=== PATIENT | female | born 1955 | race Caucasian/White ===

== ENCOUNTER 2019-02-16 12:01 | Day surgery (SDC) | payer OTHER, SELFPAY ==
--- NOTE | 2019-02-16 07:04 | COLE_ITS ---
Date of service: 02/16/19 Time of Service: 14:57 Colonoscopy Report Date of procedure: 02/16/19 Pre-op diagnosis general: Colon Cancer Screening Post-op diagnosis procedure note: other (Colorectal polyps) Procedure: Colonoscopy with polypectomy by cold forceps Surgeon: Alessandra Lindsay Anesthesia proc note operative: other (General/ ASA 2/ Jai Sullivan CRNA) Estimated blood loss (mL): 3 Pathology: other (Ascending polypX2, Sigmoid polyp x2) Complications: None Disposition: same day Indications: Mrs. Cabezas is a pleasant 63 year old female who was seen in the office for a screening colonoscopy. Her last colonoscopy was in 2005 and was normal. Risks, benefits and complications have been reviewed. Complications include but are not limited to bleeding, pain, perforation, missed small lesion/polyp, sore throat, aspiration and adverse reaction to the medications. Questions were entertained and answered to their satisfaction and they wished to proceed. No guarantees were given or implied. Prep: Miralax/Dulcolax Procedure Start Time: 14:57 Procedure End Time: 15:30 Retraction Time: 23 minutes Findings: 4 sessile polyps removed with cold forceps Procedure Description: After informed consent was obtained the patient was taken to the procedure room and placed in a left decubitous position. Monitors were applied and a time out was done. The patients name, date of , procedure, allergies to medications and metal in their body was reviewed. The patient was then sedated. Once sedated and comfortable a rectal exam was done. External exam was normal. Internal exam revealed a normal sphincter tone and no palpable m asses. The scope was then introduced and retro-flexed. No internal hemorrhoids were identified. There were no rectal polyps or masses noted. The scope was then advanced to the cecum without difficulty. The TI and appendiceal orifice were identified. The prep was adequate. There were numerous grapes noted. The scope was then slowly retracted over 23 minutes back into the rectum. Polyps were removed with cold forceps in the ascending colon and sigmoid colon. The scope was removed and the patient was woken up and taken back to Same day surgery in stable condition. The patient tolerated the procedure well and there were no immediate complications. Follow up: The patient should follow up in 3-5 years unless they develop changes in bowel habits or other new gastrointestinal complaints.
--- NOTE | 2019-02-16 07:04 | W.PM.DSUDISC ---
Discharge Plan Disposition Patient Disposition: HOME Condition: Good Discharge Details Reason For Visit: Colonoscopy Attending Provider: Alessandra Lindsay Primary Care Provider: Wilfredo Vizcaino Home Meds and New Rx's Prescriptions: Continued senna leaf tea PO HS PRN RF: 0 meclizine 25 mg tablet,chewable 25 mg PO DAILY PRNRF: 0 triamcinolone acetonide 0.1 % cream 1 applic TP TID Qty: 15 RF: 3 ibuprofen-diphenhydramine HCl [Advil PM Liqui-Gels] 200-25 mg capsule 1 cap PO QHS PRNRF: 0 omeprazole 20 mg capsule,delayed release(DR/EC) 20 mg PO DAILY RF: 0 Discontinued polyethylene glycol 3350 17 gram/dose powder 238 g PO ONCE Qty: 238 RF: 0 bisacodyl [Dulcolax (bisacodyl)] 5 mg tablet,delayed release (DR/EC) 5 mg PO ONCE Qty: 4 RF: 0 Discharge Instructions Instructions: Colonoscopy (DC), Colorectal Polyps (DC) Additional Instructions: Findings: 4 polyps Follow up: 3-5 years Please call if you develop: fevers >101.5 Nausea or Vomiting Abdominal pain that is not transient DAY SURGERY UNIT POST COLONOSCOPY INSTRUCTIONS 1. Because there will be medication in your system for the next 24 hours, you may feel a little sleepy. Your coordination will be affected. Therefore: a. Do not drive or operate dangerous equipment for 24 hours. b. Do not drink alcohol beverages for 24 hours (not even beer). c. Plan to go home and rest for the day. 2. Generally there are no restrictions on your activity after a day or so has gone by, but you may feel a bit fatigued for a few days. 3 After you arrive home you may have a light meal and return to a normal diet as you can tolerate it without feeling sick to your stomach. 4. After surgery, you may feel pain or discomfort. This should be only transient, but if it persists please contact your doctor. 5. If there are any questions regarding the findings of your procedure, please feel free to contact your doctor. 6. If you are unable to contact your doctor with a problem, contact the hospital at [phone]. 7. Continue all your regular medications unless directed otherwise. I understand the above instructions and have no questions. Signature of Patient or Responsible Adult Escort Date/Time Name of Responsible Adult Escort Signature of Nurse Date/Time Activity:: Activity as Tolerated Diet:: As Tolerated Discharge Orders Discharge Orders: Discharge Order (Routine); Ordered 02/16/19 Ordered By: Alessandra Lindsay DS: Diagnosis Discharge Diagnosis (1) S/P colonoscopy: Status: Acute (2) Colorectal polyps: Status: Acute
[2019-02-16 12:31] VITALS: BP 140/89; PULSE 72; RESP 16; TEMP 36.3; O2SAT 98
[2019-02-16] MEDS: Lactated Ringers 1,000 ML 80 ML IV (12:45)
--- NOTE | 2019-02-16 15:11 | BOWEL_PTH ---
PATIENT: Leslie Cabezas LOC: [facility] U#:[id number] AGE/SX: 63/F ROOM: RE02/16/[address]: Alessandra Lindsay MD : [id number] BED: DIS: 02/16/2019 SPEC #: [id number] RECD: 02/16/19 18:37 STATUS: BLAINE REQ #: [id number] ED: 02/16/19 15:[address]: Alessandra Lindsay DEPT: Surgical Specimen RECD BY: Latosha Augustin ENTERED: 02/16/19 18:39 SP TYPE: Bowel OTHR DR: Wilfredo Vizcaino Tissues: 1 - BIOPSY BOWEL 2 - BIOPSY BOWEL Procedures: GROSS AND MICRO LEVEL 4 Comments: [id number]
[2019-02-16 15:59] VITALS: BP 124/79; PULSE 55; RESP 16; TEMP 35.6; O2SAT 100
== END 2019-02-16 16:25 | disposition home or self-care (01) ==
LOC: SUR 12:01
PROVIDERS: PCP Internal Medicine; Visit Provider Surgery
PROC: 0DJD8ZZ Inspection of Lower Intestinal Tract, Via Natural or Artificial Opening Endoscopic (ICD-10-PCS; CPT 45378; principal; 2019-02-16 13:30)
DX: Z12.11 Encounter for screening for malignant neoplasm of colon (principal); D12.2 Benign neoplasm of ascending colon; K63.5 Polyp of colon
CPT/HCPCS: 45380; 88305

== ENCOUNTER 2019-05-27 10:07 | Outpatient (REF) | payer OTHER, SELFPAY ==
[2019-05-27 21:02] LABS: Calculated LDL 218 mg/dL; Cholesterol 314 mg/dL (50-200); HDL Cholesterol 70 mg/dL (40-60); Triglyceride 131 mg/dL (30-150)
[2019-05-29 09:44] LABS: Hepatitis C Ab w Rflx HCV PCR Negative (NEGAT)
== END 2019-05-27 10:27 ==
LOC: NCHCN 10:07
PROVIDERS: PCP Internal Medicine; Visit Provider Nurse Practitioner Family
DX: Z13.220 Encounter for screening for lipoid disorders (principal); Z11.59 Encounter for screening for other viral diseases
CPT/HCPCS: 80061; 86803

== ENCOUNTER 2019-06-03 09:57 | Outpatient (REF) | payer OTHER, SELFPAY ==
[2019-06-03 20:51] LABS: ALT 33 U/L (14-59); AST 19 U/L (15-37)
== END 2019-06-03 10:17 ==
LOC: NCHCN 09:57
PROVIDERS: PCP Internal Medicine; Visit Provider Nurse Practitioner Family
DX: Z79.899 Other long term (current) drug therapy (principal)
CPT/HCPCS: 84450; 84460

== ENCOUNTER 2020-01-25 09:58 | Outpatient (REF) | payer OTHER, SELFPAY ==
--- NOTE | 2020-01-25 09:30 | PAPFT_PTH ---
PATIENT: Leslie Cabezas LOC: [facility] U#:[id number] AGE/SX: 64/F ROOM: RE01/25/[address]: Lisa Cano NP : 1955 BED: DIS: 01/25/2020 SPEC #: [id number] RECD: 01/25/20 12:35 STATUS: BLAINE OSORIO #: [id number] ED: 01/25/20 09:[address]: Lisa Cano NP DEPT: [facility] Cytology RECD BY: Latosha Augustin ENTERED: 01/25/20 12:35 SP TYPE: PAPFT OTHR DR: Wilfredo Vizcaino Tissues: 1 - CX/ENDOCX FOR PAP SMEARS Procedures: PAP THIN PREP/UVM Screening HPV DNA PROBE Comments: [id number]
== END 2020-01-25 10:18 ==
LOC: LBN 09:58
PROVIDERS: PCP Internal Medicine; Visit Provider Nurse Practitioner Women's Health
DX: Z12.4 Encounter for screening for malignant neoplasm of cervix (principal); Z11.51 Encounter for screening for human papillomavirus (HPV)
CPT/HCPCS: 88142; 87624

== ENCOUNTER 2021-03-15 02:06 | Outpatient (CLI) | payer OTHER, SELFPAY ==
--- NOTE | 2021-03-15 07:00 | DI.MAMMO_ITS ---
Exam(s) MAMMO SCREENING EXAM: MAMMO SCREENING CLINICAL HISTORY: screening,Z12.39. TECHNIQUE: Bilateral full field digital CC and MLO mammographic images were obtained with 3D tomosyn thesis and utilizing computer aided detection (CAD). COMPARISON: Prior outside mammograms dating back to 2011, the most recent being February 2020. This 65-year-old patient apparently excision biopsy in breast 1983, apparently negative. Her sister was diagnosed with breast cancer prior to age 50. FINDINGS: There has been no significant change in the appearance and distribution of the fibroglandular tissue. Stable benign microcalcifications located posteriorly in the left breast are again noted There are no new spiculated masses nor malignant appearing microcalcification groups. There is no significant architectural distortion nor skin thickening-retraction. IMPRESSION: No radiographic evidence of malignancy. BI-RADS Category 1 - Negative Breast Density - Category B - Scattered areas of fibroglandular density Breast density Category C or D implies that the patient has dense breast tissue. Dense breast tissue can make it harder to find cancer on a mammogram. Dense breast tissue is also associated with an incr eased risk of breast cancer. This information about the result of the mammogram report was provided to the patient to raise their awareness. Use this report when you speak with the patient about their risks for breast cancer, which includes their family history. At that time, you may recommend additional screening tests (Ultrasoun d or MRI) as these tests may add significant information. A negative radiographic report should not delay biopsy if a dominant or clinically suspicious mass is present. Up to ten percent of cancers are not identified on mammography. A negative report may reinforce clinical impression. Adenosis and dense breasts may obscure an underlying neoplasm. False positive reports average 6 to 10%. Patient will receive a letter notifying them of these results.
== END 2021-03-15 02:26 ==
PROVIDERS: PCP Internal Medicine; Visit Provider Nurse Practitioner Women's Health
DX: Z12.31 Encounter for screening mammogram for malignant neoplasm of breast (principal); R92.8 Other abnormal and inconclusive findings on diagnostic imaging of breast
CPT/HCPCS: 77063; 77067

== ENCOUNTER 2021-12-27 10:33 | Outpatient (REF) | payer OTHER, SELFPAY ==
[2021-12-27 22:03] LABS: ALT 34 U/L (14-59); AST 18 U/L (15-37); Alkaline Phosphatase 89 U/L (46-116); Anion Gap 9.5 mmol/L (3-11); BUN 13 mg/dL (7-18); Bilirubin, Total 0.7 mg/dL (0.2-1.0); CO2 25.5 mmol/L (21.0-32.0); CREATININE 0.7 mg/dL (0.55-1.02); Calcium 8.7 mg/dL (8.5-10.1); Chloride 108 mmol/L (98-107); Glucose 106 mg/dL (74-106); Potassium 4.1 mmol/L (3.5-5.1); Sodium 143 mmol/L (136-145); Total Protein 6.7 g/dL (6.4-8.2)
== END 2021-12-27 10:34 | disposition home or self-care (01) ==
LOC: NCHCN 10:33
PROVIDERS: PCP Internal Medicine; Visit Provider Nurse Practitioner Family
DX: R73.9 Hyperglycemia, unspecified (principal); E78.5 Hyperlipidemia, unspecified
CPT/HCPCS: 80053; 83036

== ENCOUNTER → 2022-04-11 01:17 | Outpatient (CLI) | payer OTHER, SELFPAY ==
--- NOTE | 2022-04-11 08:48 | DI.MAMMO_ITS ---
Exam(s) MAMMO SCREENING EXAM: MAMMO SCREENING CLINICAL HISTORY: screening,z12.39 TECHNIQUE: Mammograms were interpreted according to the usual protocol including computer analysis w [employer] CAD system, tomosynthesis and C-view imaging. COMPARISON: FINDINGS: The breasts are of moderate density with fairly symmetrical distribution of fibroglandular tissue. N o dominant mass or clumped microcalcification is identified in either breast. The current examinatio n is compared with previous examinations including February 2021 and there has been question of increased prominence of a small focal area of asymmetric density projected in the inferior portion of the left breast on MLO view only. Additional mammographic views of this area are requested to include an MLO spot compression view of the left breast. No other significant change seen. IMPRESSION: Additional mammographic views of the left breast recommended as described above. Breast ultrasound m ay be indicated as well depending on the results of the additional mammographic views. BI-RADS Category 0 - Assessment Incomplete: Need additional imaging evaluation Breast Density - Category B - Scattered areas of fibroglandular density
== END ==
PROVIDERS: PCP Internal Medicine; Visit Provider Nurse Practitioner Women's Health
DX: Z12.31 Encounter for screening mammogram for malignant neoplasm of breast (principal); R92.8 Other abnormal and inconclusive findings on diagnostic imaging of breast
CPT/HCPCS: 77063; 77067

== ENCOUNTER → 2022-04-18 01:40 | Outpatient (CLI) | payer OTHER, SELFPAY ==
--- NOTE | 2022-04-18 | DI.MAMMO_ITS ---
Exam(s) MAMMO SCREEN CALL BACK UNI US BREAST LT COMPLETE EXAM: MAMMO SCREEN CALL BACK UNI -LEFT AND COMPLETE LEFT BREAST ULTRASOUND CLINICAL HISTORY: ASYMMETRIC DENSITY LEFT BREAST. TECHNIQUE: Unilateral spot mammographic images obtained with 3D tomosynthesisand utilizing computer aided detection (CAD). . Complete LEFT breast Ultrasound was also performed, including all 4 quadrants, the retroareolar regio n, and the ipsilateral axilla. COMPARISON: Prior mammograms were reviewed. This additional imaging was performed due to findings described on the recent screening mammogram of 04/11/2020. FINDINGS: DIAGNOSTIC LEFT BREAST MAMMOGRAM: Additional 3D spot mammographic views performed todayrender this area less concerning. We proceeded with ultrasound. COMPLETE LEFT BREAST ULTRASOUND: Ultrasound performed today reveals no evidence of solid or significant cystic lesions in all 4 quadra nts nor in the retroareolar region.. Scanning of the left axilla is negative for adenopathy. IMPRESSION: 1. No radiographic evidence of malignancy in left breast. 2. Negative complete left breast ultrasound. Appropriate follow-up is repeat left breast MAMMOGRAM in 6 months, with earlier imaging if a self de tected breast change is noted.. The patient was informed of these findings and recommendations prior to leaving the department today. BI-RADS Category 3 - 6 month - Probably Benign Finding: Recommend follow-up mammography in 6 months Breast Density - Category B - Scattered areas of fibroglandular density Breast density Category C or D implies that the patient has dense breast tissue. Dense breast tissue can make it harder to find cancer on a mammogram. Dense breast tissue is also associated with an incr eased risk of breast cancer. This information about the result of the mammogram report was provided to the patient to raise their awareness. Use this report when you speak with the patient about their risks for breast cancer, which includes their family history. At that time, you may recommend additional screening tests (Ultrasoun d or MRI) as these tests may add significant information. A negative radiographic report should not delay biopsy if a dominant or clinically suspicious mass is present. Up to ten percent of cancers are not identified on mammography. A negative report may reinforce clinical impression. Adenosis and dense breasts may obscure an underlying neoplasm. False positive reports average 6 to 10%. Patient will receive a letter notifying them of these results.
== END ==
PROVIDERS: PCP Internal Medicine; Visit Provider Nurse Practitioner Women's Health
DX: Z12.31 Encounter for screening mammogram for malignant neoplasm of breast (principal); R92.8 Other abnormal and inconclusive findings on diagnostic imaging of breast
CPT/HCPCS: 76642; 77063; 77067

== ENCOUNTER 2022-10-24 01:35 | Outpatient (CLI) | payer MEDICARE, SELFPAY ==
--- NOTE | 2022-10-24 08:00 | DI.MAMMO_ITS ---
Exam(s) MAMMO DIAGNOSTIC UNI EXAM: MAMMO DIAGNOSTIC UNI CLINICAL HISTORY: 6 month f/u,F/U ABNL/INCONCLUSIVE MAMMO,R92.8,ASYMMETRIC DENSITY. TECHNIQUE: Craniocaudal and mediolateral oblique Full Field Digital Mammography views of the left br east with Computer Aided Diagnosis followed by Tomosynthesis. COMPARISON: Comparison is made with prior examinations. FINDINGS: Mammography/Tomosynthesis: Masses/Architectural Distortion: None seen. Microcalcifictions: No suspicious pleomorphic-type are seen. Skin Thickening/Nipple Retraction: None. IMPRESSION: 1. No evidence of malignancy is noted. 2. Unless there is more urgent need, follow-up screening mammography is recommended, as per [place] [employer] guidelines. 3. The findings were discussed with the patient on the date of the examination. BI-RADS Category 1 - Negative Breast Density - Category B - Scattered areas of fibroglandular density Breast density Category C or D implies that the patient has dense breast tissue. Dense breast tissue can make it harder to find cancer on a mammogram. Dense breast tissue is also associated with an incr eased risk of breast cancer. This information about the result of the mammogram report was provided to the patient to raise their awareness. Use this report when you speak with the patient about their risks for breast cancer, which includes their family history. At that time, you may recommend additional screening tests (Ultrasoun d or MRI) as these tests may add significant information. A negative radiographic report should not delay biopsy if a dominant or clinically suspicious mass is present. Up to ten percent of cancers are not identified on mammography. A negative report may reinforce clinical impression. Adenosis and dense breasts may obscure an underlying neoplasm. False positive reports average 6 to 10%. Patient will receive a letter notifying them of these results.
== END 2022-10-24 01:55 ==
PROVIDERS: PCP Internal Medicine; Visit Provider Nurse Practitioner Women's Health
DX: R92.8 Other abnormal and inconclusive findings on diagnostic imaging of breast (principal); N64.59 Other signs and symptoms in breast
CPT/HCPCS: 77061; 77065; G0279

== ENCOUNTER → 2022-12-13 09:40 | Outpatient (BNVA) | payer MEDICARE, SELFPAY | PROVIDERS: PCP Internal Medicine; Referring Provider Internal Medicine; Visit Provider Physical Therapy Assistant | DX: Z12.11 Encounter for screening for malignant neoplasm of colon (principal); Z86.010 Personal history of colon polyps ==

== ENCOUNTER 2022-12-31 07:40 | Day surgery (SDC) | payer MEDICARE, SELFPAY ==
--- NOTE | 2022-12-30 20:11 | W.PM.DSUDISC ---
Date of service: 12/31/22 Time of Service: 10:52 Discharge Plan Disposition Patient Disposition: Home Condition: Good Discharge Details Reason For Visit: Screening colonoscopy Attending Provider: Stevo Schroeder Primary Care Provider: Wilfredo Vizcaino Home Meds and New Rx's Prescriptions: Continued meclizine 25 mg tablet,chewable 25 mg PO DAILY PRN senna leaf Tea PO DAILY PRN (Reason: hs) ibuprofen-diphenhydramine HCl [Advil PM Liqui-Gels] 200-25 mg capsule 1 cap PO QHS PRN omeprazole 20 mg capsule,delayed release(DR/EC) 40 mg PO HS atorvastatin 40 mg tablet 40 mg PO QHS meloxicam 15 mg tablet 15 mg PO DAILY PRN acetaminophen [Arthritis Pain Relief (acetam)] 650 mg tablet extended release 650 mg PO Q12H hydrochlorothiazide 12.5 mg capsule 12.5 mg PO DAILY cholecalciferol (vitamin D3) 50 mcg (2,000 unit) capsule 50 mcg PO DAILY hydrocortisone [Cortizone-10] 1 % cream 1 applic topical BID PRN ibuprofen [Advil] 200 mg tablet 600 mg PO TID PRN clobetasol 0.05 % cream 1 applic topical DAILY Discontinued polyethylene glycol 3350 17 gram/dose powder 238 g PO ONCE Qty: 238 0RF Rx Instructions: take per colonoscopy instructions bisacodyl [Dulcolax (bisacodyl)] 5 mg tablet,delayed release (DR/EC) 5 mg PO ONCE Qty: 4 0RF Rx Instructions: take per colonoscopy instructions Discharge Instructions Instructions: Colorectal Polyps (GEN) Additional Instructions: Leslie, we were able to please complete your colonoscopy today without any difficulty. Based on the exam, you do seem to have some anal stricture. I suspect this is secondary to scar tissue from previous procedures. The simplest treatment would be anal dilation. We will be happy to see you in the office to talk about the risks and benefits of the procedure, and expectations for the long-term prognosis. Alternatively, if you prefer a referral to a colorectal specialist for their opinion, would be more than happy to provide that as well. In the meantime, I would continue to maximize stool softener treatments, and fiber therapies in an effort to soften your stool to allow for more comfortable bowel movements. With regards to the rest of the colonoscopy, I did find a single polyp. It was about 50 cm from your anus. I removed it completely. He will take a little over a week or so to get the results of the pathology, and I will be in touch at that time. 1. If tolerated, consume a soft, low fiber diet for 1-2 days. 2. Do not drive, drink alcohol, operate machinery, make critical decisions, or do activities that require coordination or balance for 24 hours. 3. Because air was put into your colon during the procedure, expelling air from your rectum (passing gas or farting) is normal. 4. You may not have a bowel movement for 1-3 days because of the colonoscopy prep. This is normal. 5. Go directly to the emergency room if you notice any of the following: Develop chills (warm to touch), or if you have a thermometer and your temperature is above 101 Difficulty breathing or difficultly swallowing Persistent vomiting Severe abdominal pain, other than gas cramps Severe chest pain Black, tarry stools Any bleeding ? exceeding one tablespoon 6. Call your physician if the site where your intravenous was started becomes red, swollen, painful, and warm to touch. 7. Your physician has reviewed your pre-procedure medications. Please continue to take those medications as previously ordered. You will be given specific information/education regarding any changes to your medications before leaving. Activity:: Activity as Tolerated Diet:: As Tolerated Discharge Orders Discharge Orders: Discharge Order (Routine); Ordered 12/30/22 Ordered By: Stevo Schroeder DS: Diagnosis Discharge Diagnosis (1) Screening for colon cancer: Status: Acute Asessment and Plan: 1 polyp removed. Follow-up on the pathology result.
--- NOTE | 2022-12-30 20:13 | COLE_ITS ---
Date of service: 12/31/22 Time of Service: 10:54 Colonoscopy Report Date of procedure: 12/31/22 Pre-op diagnosis general: Screening colonoscopy Post-op diagnosis procedure note: other (Anal stricture, colon polyp) Procedure: Colonoscopy with polypectomy Surgeon: Stevo Schroeder Anesthesia Type: General:No Airway Estimated blood loss (mL): 10 Pathology: other (Polyp at 50 cm) Complications: None Disposition: same day Indications: Leslie is a 67 year olfwomen whith a history of a tubulovillous adenoma. She is undergoing her next screening colonoscopy Prep: Miralax/Dulcolax Procedure Start Time: 10:19 Procedure End Time: 10:36 Retraction Time: 8 Findings: Polyp at 50 cm. Procedure Description: After the induction of monitored anesthetic care, and with the patient in left lateral decubitus position, I began by performing an external anorectal exam.? Perineum and skin were normal, as was the anal verge.? There was no evidence of external hemorrhoids.? Next, I performed a digital rectal exam.? The anus was tight.? Next, I advanced a colonoscope into the rectal vault.? I performed retroflexion.? I did not see signs of pathologic internal hemorrhoids.? Using insufflation, I then advanced the colonoscope beyond the rectal folds and into the sigmoid colon before advancing towards the cecum.? The quality of the prep was excellent.? The scope was noted to be in the cecum by identification of the ileocecal valve and appendiceal orifice.? I then began withdrawing the colonoscope using repeated irrigation as necessary for full evaluation of the colonic mucosa. Around 50 cm from the anal verge I identified a 0.25 cm polyp. ?It appeared sessile in character. ?I was able to remove this with a cold forcep polypectomy. ?I examined the site, and there was minimal bleeding. ?Once this was completed, I continued to withdraw the scope and examine the remainder of the colonic mucosa.?Once the scope was withdrawn to the level of the rectum, great care was taken to examine portions of the rectal folds.? Finally, the scop e was withdrawn and the patient was brought to the same-day surgery recovery unit as the anesthetic wore off. ?The findings and instructions were shared with the patient prior to discharge.
--- NOTE | 2022-12-31 06:12 | ANES.PREOP_ITS ---
General Info Date of Service Date Performed: 12/31/22 Height: 5 ft 6 in Weight: 95.254 kg Body Mass Index (BMI): 33.9 Surgical Procedure: Operation Date: 12/31/22 09:20 Proposed Procedure Side Surgeon baljit Schroeder MD Meds Allergies and Home Medications Allergies Allergy/AdvReac Type Severity Reaction Status Date / Time doxycycline AdvReac Verified 12/13/22 09:47 tetracycline AdvReac stomach Verified 12/13/22 09:47 pains Home Medication Medication Instructions Recorded meclizine 25 mg chewable tablet 25 mg PO DAILY PRN 12/03/18 ibuprofen 200 mg-diphenhydramine 1 cap PO QHS PRN 02/02/19 HCl 25 mg capsule (Advil PM Liqui-Gels) atorvastatin 40 mg tablet 40 mg PO QHS 01/25/20 meloxicam 15 mg tablet 15 mg PO DAILY PRN 01/25/21 omeprazole 20 mg capsule,delayed 40 mg PO HS 01/25/21 release senna leaf ml PO DAILY PRN hs 01/25/21 acetaminophen 650 mg 650 mg PO Q12H 01/31/22 tablet,extended release (Arthritis Pain Relief (acetaminophen) ER) cholecalciferol (vitamin D3) 50 50 mcg PO DAILY 04/11/22 mcg (2,000 unit) capsule hydrocortisone 1 % topical cream 1 applic topical BID PRN 04/11/22 (Cortizone-10) clobetasol 0.05 % topical cream 1 applic topical DAILY 06/19/22 ibuprofen 200 mg tablet (Advil) 600 mg PO TID PRN 06/19/22 hydrochlorothiazide 12.5 mg capsule 12.5 mg PO DAILY 12/13/22 Current Visit Medications: Current Medications Generic Name Dose Route Start Last Admin Trade Name Freq PRN Reason Stop Dose Admin Hyoscyamine Sulfate 0.125 mg 12/30/22 20:14 Hyoscyamine 0.125 Mg Sl/Oral/Chew SL DIRECTED PRN Ringer's Solution 1,000 mls @ 80 mls/hr 12/31/22 06:00 IV 01/27/23 23:59 INFUSION JOSEPH IV Miscellaneous Supplies 1 each 12/31/22 06:00 Iv Access IV 01/27/23 23:59 DIRECTED JOSEPH Ondansetron HCl 4 mg 12/30/22 20:14 Ondansetron 4 Mg/2 Ml Vial IVP Q4H PRN PRN Nausea / Vomiting Sodium Chloride 0 ml 12/31/22 06:00 Normal Saline Flush 10 Ml Syr IV 01/27/23 23:59 PRN PRN Sodium Chloride 0 ml 12/31/22 06:00 Normal Saline 10 Ml Vial IJ 01/27/23 23:59 DIRECTED PRN Sterile Water 0 ml 12/31/22 06:00 Water,Injection,Sterile 10 Ml Vial IJ 01/27/23 23:59 DIRECTED PRN PFSH Active Problems Active Problems: Problem Status Onset Code Tubulovillous adenoma of colon D12.6 Psoriasis L40.9 Piriformis syndrome G57.00 GERD (gastroesophageal reflux disease) K21.9 Change in stool caliber R19.5 Screening for colon cancer Z12.11 Vaginal atrophy N95.2 Vulvar itching L29.2 Colorectal polyps ~02/16/19 K63.5 Stress incontinence N39.3 Medical History Medical History Anal fissure Anal sphincter incontinence Tx with botox and surgical repear Digital mucous cyst Hypercholesterolemia Joint pain Pain, joint, knee, left Right elbow pain Sprain of right elbow Surgical History Surgical History History of ankle surgery Left: s/p fall 2017 Right: unspecified (hardware in right) History of elbow surgery left History of lumpectomy of left breast benign History of tubal ligation Hx of rectal sphincterotomy (2003) 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 S/P colonoscopy (~02/16/19) Tobacco Smoking/Tobacco Use Status: Former Tobacco Use Alcohol Alcohol Intake: current Alcohol intake frequency: a few times a month Substance Use Substance use: Never Substance use type: does not use Prental History History 5 Para 3 Hx # Term Pregnancies Multiple births Hx # Pregnancies Ectopic pregnancies AB induced Hx Number of Living Children AB spontaneous Vital Signs and Lab Results Lab Results Blood Type / Crossmatch: No Data to Display Complete Blood Count: No Data to Display Complete Metabolic Panel: No Data to Display Liver Function Panel: No Data to Display Coagulation Panel: No Data to Display Cardiac Panel: No Data to Display Arterial Blood Gas: No Data to Display Venous Blood Gas: No Data to Display Pancreas Panel: No Data to Display Thyroid Panel: No Data to Display Infectious Disease: No Data to Display Blood Cultures: No Data to Display Toxicology Panel: No Data to Display Anesthesia Assessment and Plan Anesthesia History Personal History: No History of Anesthesia Complications Family History: No Family History of Anesthesia Complications Exercise Tolerance Exercise Tolerance: Metabolic Equivalents>4 Cardiac & Pulmonary Exam Cardiac Exam: Normal S1/S2 Heart Sounds Pulmonary Exam: Clear Bilateral Breath Sounds Implantable Cardiac Device Does patient have a Pacemaker or an ICD?: No Airway Exam Known Difficult Airway: No Mallampati Class: 2 Mouth Opening: Normal (> 3cm) Thyromental Distance: Greater than 3 cm Neck Range of Motion: Full ROM Neck Circumference: Normal Teeth Condition: Normal Dentition ASA Classification ASA Score: ASA 2 Emergency Case?: No NPO Status NPO Status: NPO Clears >2 hours, Solids >8 hours Anesthesia Plan Resuscitation Status: Full Code Anesthesia Technique: General Anesthesia Airway Planned: Natural Airway Monitors Used: Standard Monitors Preoperative Comments:: 67 yo female for colo. sig PMHx: GERD, HTN, former smoker, occ EtOH. Previous [place], prop, natural airway, no issues.
[2022-12-31] MEDS: Lactated Ringers 1,000 ML 80 ML IV (08:20)
[2022-12-31 08:28] VITALS: BMI 33.9
[2022-12-31 10:08] VITALS: BP 131/71; PULSE 80; RESP 16; TEMP 36.1; O2SAT 97
--- NOTE | 2022-12-31 10:32 | BOWEL_PTH ---
PATIENT: Leslie Cabezas LOC: [facility] U#:[id number] AGE/SX: 67/F ROOM: RE12/31/[address]: Stevo Schroeder MD : [id number] BED: DIS: 12/31/2022 SPEC #: [id number] RECD: 12/31/22 11:49 STATUS: BLAINE REQ #: [id number] ED: 12/31/22 10:[address]: Stevo Schroeder DEPT: Surgical Specimen RECD BY: Latosha Augustin ENTERED: 12/31/22 11:49 SP TYPE: Bowel OTHR DR: Wilfredo Vizcaino Tissues: 1 - BIOPSY BOWEL Procedures: GROSS AND MICRO LEVEL 4 Comments: [id number]
[2022-12-31 10:40] VITALS: BP 132/78; PULSE 66; RESP 17; TEMP 36.6; O2SAT 99
--- NOTE | 2022-12-31 10:48 | W.ANESPOSTOP ---
Postoperative Evaluation Date, Time and Location Date Performed: 12/31/22 Time Performed: 10:48 Patient Location: Day Surgery Unit Vital Signs Most Recent Imported Vital Signs: Most Recent Vital Signs Temp Pulse Resp BP Pulse Ox 36.6 C 66 17 132/78 99 12/31/22 10:40 12/31/22 10:40 12/31/22 10:40 12/31/22 10:40 12/31/22 10:40 Pain Score Most Recent Pain Score: Most Recent Pain Score Pain Level 0 12/31/22 10:40 Assessment Mental Status: Awake (Alert & Oriented to Patient Baseline) Airway and Respiratory Function: Patent airway with normal (patient baseline) respiratory exam Cardiovascular Function: Hemodynamically Stable Hydration Status: Adequately Hydrated Nausea & Vomiting: No Nausea or Vomiting Pain: Pt. Denies Any Pain Peripheral Nerve Block: Patient did not receive a nerve block
[2022-12-31 11:11] VITALS: BP 128/82; PULSE 61; RESP 18; TEMP 36.5; O2SAT 99
== END 2022-12-31 10:18 | disposition home or self-care (01) ==
PROVIDERS: PCP Internal Medicine; Visit Provider Surgery
PROC: 0DJD8ZZ Inspection of Lower Intestinal Tract, Via Natural or Artificial Opening Endoscopic (ICD-10-PCS; CPT 45378; principal; 2022-12-31 09:15)
DX: Z12.11 Encounter for screening for malignant neoplasm of colon (principal); Z86.010 Personal history of colon polyps; D12.5 Benign neoplasm of sigmoid colon; K62.4 Stenosis of anus and rectum
CPT/HCPCS: 45380; 88305

== ENCOUNTER 2023-04-17 08:23 | Outpatient (REF) | payer MEDICARE, SELFPAY ==
[2023-04-17 21:56] LABS: ALT 26 U/L (14-59); AST 16 U/L (15-37); Albumin 3.6 g/dL (3.4-5.0); Alkaline Phosphatase 85 U/L (46-116); Anion Gap 8.7 mmol/L (3-11); BUN 18 mg/dL (7-18); Bilirubin, Total 0.4 mg/dL (0.2-1.0); CO2 24.3 mmol/L (21.0-32.0); CREATININE 0.9 mg/dL (0.55-1.02); Calcium 8.8 mg/dL (8.5-10.1); Calculated LDL 115 mg/dL (<100); Chloride 106 mmol/L (98-107); Cholesterol 210 mg/dL (<200); Estimated GFR 70.51 (mL/min/1.73m2); Glucose 114 mg/dL (74-106); HDL Cholesterol 73 mg/dL (40-60); Potassium 4.1 mmol/L (3.5-5.1); Sodium 139 mmol/L (136-145); Total Protein 6.8 g/dL (6.4-8.2); Triglyceride 110 mg/dL (<150)
== END 2023-04-17 08:24 | disposition home or self-care (01) ==
LOC: NCHCN 08:23
PROVIDERS: PCP Internal Medicine; Visit Provider Nurse Practitioner Family
DX: I10 Essential (primary) hypertension (principal); R73.03 Prediabetes
CPT/HCPCS: 80053; 80061

== ENCOUNTER 2024-04-07 14:57 | Outpatient (REF) | payer MEDICARE, SELFPAY ==
[2024-04-07 19:32] LABS: ALT 28 U/L (14-59); AST 22 U/L (15-37); Albumin 4.4 g/dL (3.4-5.0); Alkaline Phosphatase 90 U/L (46-116); Anion Gap 11.1 mmol/L (3-11); BUN 8 mg/dL (7-18); Bilirubin, Total 0.78 mg/dL (0.2-1.0); CO2 26.9 mmol/L (21.0-32.0); Calcium 9.7 mg/dL (8.5-10.1); Calculated LDL 70 mg/dL (<100); Chloride 105 mmol/L (98-107); Cholesterol 170 mg/dL (<200); Estimated GFR 61.75 (mL/min/1.73m2); Glucose 112 mg/dL (74-106); HDL Cholesterol 79 mg/dL (40-60); Potassium 3.5 mmol/L (3.5-5.1); Sodium 143 mmol/L (136-145); Total Protein 7.4 g/dL (6.4-8.2); Triglyceride 106 mg/dL (<150)
== END 2024-04-07 14:58 | disposition home or self-care (01) ==
LOC: NCHCN 14:57
PROVIDERS: PCP Internal Medicine; Visit Provider Nurse Practitioner Family
DX: E78.5 Hyperlipidemia, unspecified (principal)
CPT/HCPCS: 80053; 80061

== ENCOUNTER 2024-06-10 02:19 | Outpatient (CLI) | payer MEDICARE, SELFPAY ==
--- NOTE | 2024-06-10 12:00 | DI.MAMMO_ITS ---
Exam(s) MAMMO SCREENING EXAM: MAMMO SCREENING CLINICAL HISTORY: screening TECHNIQUE: Bilateral full field digital CC and MLO mammographic images were obtained with 3D tomosyn thesis and utilizing computer aided detection (CAD). COMPARISON: Available for comparison. FINDINGS: Masses/Architectural Distortion: None seen. Microcalcifications: No suspicious pleomorphic-type are seen. Skin Thickening/Nipple Retraction: None. IMPRESSION: 1. No significant interval change with no specific features of malignancy noted. 2. Unless there is more urgent need, screening mammography is recommended, as per [place] [employer] guidelines. BI-RADS Category 1 - Negative Breast Density - Category B - Scattered areas of fibroglandular density Breast density category C or D implies that the patient has dense breast tissue. Dense breast tissue is very common and is not abnormal but dense breast tissue can make it harder to find cancer on a ma mmogram. Also, dense breast tissue may increase their breast cancer risk. This information about the result of the mammogram report was provided to the patient to raise their awareness. Use this report when you speak with the patient about their risks for breast cancer, which includes their family hist ory. At that time, you may recommend for more screening tests (Ultrasound or MRI) as they might be us eful based on their risk. A negative radiographic report should not delay biopsy if a dominant or clinically suspicious mass is present. Up to ten percent of cancers are not identified on mammography. A negative report may reinforce clinical impression. Adenosis and dense breasts may obscure an underlying neoplasm. False positive reports average 6 to 10%. Patient will receive a letter notifying them of these results.
== END 2024-06-10 02:39 ==
LOC: DI 02:19
PROVIDERS: PCP Internal Medicine; Visit Provider Nurse Practitioner Women's Health
DX: Z12.31 Encounter for screening mammogram for malignant neoplasm of breast (principal)
CPT/HCPCS: 77063; 77067

== ENCOUNTER 2025-04-12 15:36 | Outpatient (REF) | payer MEDICARE, SELFPAY ==
[2025-04-12 20:02] LABS: ALT 27 U/L (14-59); AST 18 U/L (15-37); Albumin 3.8 g/dL (3.4-5.0); Alkaline Phosphatase 77 U/L (46-116); Anion Gap 9.9 mmol/L (3-11); BUN 8 mg/dL (7-18); Bilirubin, Total 0.5 mg/dL (0.2-1.0); CO2 26.1 mmol/L (21.0-32.0); Calcium 8.7 mg/dL (8.5-10.1); Chloride 107 mmol/L (98-107); Estimated GFR 94.15 (mL/min/1.73m2); Glucose 110 mg/dL (74-106); Magnesium 2.1 mg/dL (1.8-2.4); Potassium 4.4 mmol/L (3.5-5.1); Sodium 143 mmol/L (136-145); Total Protein 6.8 g/dL (6.4-8.2)
== END 2025-04-12 15:37 | disposition home or self-care (01) ==
LOC: NCHCN 15:36
PROVIDERS: PCP Internal Medicine; Visit Provider Nurse Practitioner Family
DX: K52.9 Noninfective gastroenteritis and colitis, unspecified (principal); I10 Essential (primary) hypertension
CPT/HCPCS: 80053; 83735

== ENCOUNTER → 2025-07-02 03:28 | Outpatient (CLI) | payer MEDICARE, SELFPAY ==
--- NOTE | 2025-07-02 07:15 | DI.MAMMO_ITS ---
Exam(s) MAMMO SCREENING EXAM: MAMMO SCREENING CLINICAL HISTORY: screening,Z12.39 TECHNIQUE: Bilateral full field digital CC and MLO mammographic images were obtained with 3D tomosynthesis and utilizing computer aided detection (CAD). COMPARISON: Comparison is made with prior examinations. FINDINGS: Masses/Architectural Distortion: No suspicious masses or areas of architectural distortion are present. Microcalcifications: No suspicious pleomorphic-type are seen. Skin Thickening/Nipple Retraction: None. IMPRESSION: 1. No significant interval change with no specific features of malignancy noted. 2. Unless there is more urgent need, screening mammography is recommended, as per [place] [employer] guidelines. BI-RADS Category 1 - Negative Breast Density - Category B - There are scattered areas of fibroglandular density. Breast density Category C or D implies that the patient has dense breast tissue. Dense breast tissue can make it harder to find cancer on a mammogram. Dense breast tissue is also associated with an increased risk of breast cancer. This information about the result of the mammogram report was provided to the patient to raise their awareness. Use this report when you speak with the patient about their risks for breast cancer, which includes their family history. At that time, you may recommend additional screening tests (Ultrasound or MRI) as these tests may add significant information. A negative radiographic report should not delay biopsy if a dominant or clinically suspicious mass is present. Up to ten percent of cancers are not identified on mammography. A negative report may reinforce clinical impression. Adenosis and dense breasts may obscure an underlying neoplasm. False positive reports average 6 to 10%. Patient will receive a letter notifying them of these results.
== END ==
LOC: DI 03:28
PROVIDERS: PCP Internal Medicine; Visit Provider Nurse Practitioner Women's Health
DX: Z12.31 Encounter for screening mammogram for malignant neoplasm of breast (principal)
CPT/HCPCS: 77063; 77067